=== PATIENT | male | born 1960 | race Caucasian/White ===

== ENCOUNTER → 2020-12-15 | Outpatient (CLI) | payer SELFPAY ==
[~2020-12-15] MED LIST: AMIO1TAB PO; COUM1TAB17 PO; OXYC1TAB23 PO; no home medications
[2020-12-15 11:12] LABS: BASO % 0.3 % (0.0-1.0); EOS # 0.1 10^3/uL (0.0-0.5); EOS % 0.7 % (0.0-3.0); HEMATOCRIT 47.1 % (42.0-52.0); HEMOGLOBIN 15.9 g/dl (13.5-17.5); LYMPH # 2.4 10^3/uL (1.5-5.0); LYMPH % 21.2 % (24.0-44.0); MEAN CORPUSCULAR HEMOGLOBIN 31.8 pg (27.0-33.0); MEAN CORPUSCULAR HGB CONC 33.8 g/dl (32.0-36.5); MEAN CORPUSCULAR VOLUME 94.2 fl (80.0-96.0); MONO # 0.7 10^3/uL (0.0-0.8); MONO % 6.5 % (2.0-8.0); NEUTROPHILS # 8.1 10^3/uL (1.5-8.5); PLATELET COUNT, AUTOMATED 256 10^3/uL (150-450); WHITE BLOOD COUNT 11.5 10^3/uL (4.0-10.0)
[2020-12-15 11:38] LABS: ALBUMIN 3.8 GM/DL (3.2-5.2); ALT/SGPT 26 U/L (12-78); BILIRUBIN,TOTAL 0.5 MG/DL (0.2-1.0); BLOOD UREA NITROGEN 11 MG/DL (7-18); CALCIUM LEVEL 9.4 MG/DL (8.8-10.2); CARBON DIOXIDE LEVEL 31 MEQ/L (21-32); CHLORIDE LEVEL 103 MEQ/L (98-107); CREATININE FOR GFR 0.91 MG/DL (0.70-1.30); GLOMERULAR FILTRATION RATE > 60.0 (>49); GLUCOSE, FASTING 139 MG/DL (70-100); LIPASE 66 U/L (73-393); POTASSIUM SERUM 4.4 MEQ/L (3.5-5.1); SODIUM LEVEL 138 MEQ/L (136-145); TOTAL PROTEIN 7.2 GM/DL (6.4-8.2)
== END ==
LOC: M LAB 09:35
PROVIDERS: ATTEND Physician Assistant
DX: R10.10 Upper abdominal pain, unspecified (principal)

== ENCOUNTER → 2020-12-17 | Outpatient (CLI) | payer SELFPAY ==
[~2020-12-17] MED LIST changes: +GASTROGRAFIN SOLUTION 30ML (Q9963) As Ordered ONE; +ISOVUE-370 76% 100ML VIAL As Ordered ONE
--- NOTE | 2020-12-17 11:15 | REP ---
INDICATION: UPPER ABD PAIN COMPARISON: CT chest 04/29/2012. TECHNIQUE: CT Scan of the abdomen and pelvis was performed with intravenous administration of 100 cc of Isovue 370, and oral contrast. Sagittal and coronal reconstruction images are performed. FINDINGS: Lung bases: Mild fibrotic changes. There is thickening of the distal esophagus. Along the right side of the gastroesophageal junction there is ill-defined soft tissue mass which measures 3.5 x 3.1 x 3.5 cm. There is no fat plane the mass from the adjacent gastroesophageal junction. Liver: There is calcified granuloma in the posterior right lobe of the liver. Gallbladder: Unremarkable. Spleen: Normal. Adrenals: Normal. Pancreas: Normal. Kidneys: Normal. Small and large bowel: Unremarkable. Free fluid: None. Abdominal aorta: No aneurysm or dissection. Adenopathy: Several subcentimeter lymph nodes are seen in the gastrohepatic ligament and phoebe hepatis. There are several subcentimeter lymph nodes in the right cardiophrenic angle. Scattered subcentimeter mesenteric and periaortic lymph nodes are present.. Appendix: Not inflamed. Osseous structures: Moderate compression of the L4 vertebral body is probably chronic.. Pelvis: No mass. 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 There is a contiguous soft tissue mass along the right side of the gastroesophageal junction measuring 3.5 x 3.1 x 3.5 cm. Multiple subcentimeter lymph nodes are seen in the adjacent gastrohepatic ligament and phoebe hepatis, as well as the right cardiophrenic angle. Moderate compression of the L4 vertebral body is likely chronic in nature. <Electronically signed by Boris Erickson > 12/17/20 1111
== END ==
LOC: M RAD 09:09
PROVIDERS: ATTEND Physician Assistant
DX: R10.10 Upper abdominal pain, unspecified (principal); K22.89 Other specified disease of esophagus
CPT/HCPCS: 74177; Q9963; Q9967

== ENCOUNTER → 2021-01-02 | Outpatient (CLI) | payer SELFPAY ==
[~2021-01-02] MED LIST changes: -GASTROGRAFIN SOLUTION 30ML (Q9963) As Ordered ONE; -ISOVUE-370 76% 100ML VIAL As Ordered ONE
== END ==
LOC: M LABSMTC 12:44
PROVIDERS: ATTEND Anesthesiology
DX: Z01.812 Encounter for preprocedural laboratory examination (principal); Z20.822 Contact with and (suspected) exposure to COVID-19

== ENCOUNTER 2021-01-07 11:08 | Day surgery (SDC) | payer SELFPAY ==
[~2021-01-07] VITALS: Ht 172.7 cm; Wt 77.5 kg
[~2021-01-07 11:08] MED LIST changes: +NS 1,000 ML IV ONE
--- OUTSIDE RECORDS SUMMARY | 2021-01-07 11:13 | CCD | Continuity of Care Document ---
Author Author Jose MCGRATH Organization Unknown Address [address] [place] [address] Phone [phone] Care Team Providers Care Employee Benefits Coordinator Name Role Phone FloZack Arreola MD - Otolaryngology AUTM [phone] No PCP AUTM Unavailable Problems Active Problems Provider Date Acute bronchitis Long Calero PKyleigh Onset: 1 Tobacco user Korina Grissom Onset: 1 Social History Type Date Description Comments Sex Unknown Tobacco Use Start: Unknown Patient is a current cigarette smoker, smokes every day 1 ppd ETOH Use Occasionally consumes alcohol Tobacco Use Start: Unknown Patient is a current smoker, smo kes every day Smoking Status Reviewed: 12/15/20 Patient is a current smoker, smokes every day Allergies and adverse reactions Description No Known Drug Allergies Medications Description No Active Medications Immunizations Description No Information Available Vital Signs Date Vital Result Comment 12/15/2020 8:30am BP Systolic 113 mmHg BP Diastolic 77 mmHg Heart Rate 73 /min Respiratory Rate 18 /min O2 % BldC Oximetry 97 % Body Temperature 98.2 F Weight 170.00 lb Height 67 inches 5'7" BMI (Body Mass Index) 26.6 kg/m2 Pain Level 0 10/02/2019 3:32pm BP Systolic 120 mmHg BP Diastolic 77 mmHg Heart Rate 90 /min O2 % BldC Oximetry 97 % Body Temperature 97.8 F Weight 186.00 lb Height 67 inches 5'7" BMI (Body Mass Index) 29.1 kg/m2 Pain Level 3 Results Description No Information Available Procedures Date Code Description Status 12/15/2020 56485 Office/Outpatient Established Lo w MDM 20-29 Min Completed Medical Devices Description No Information Available Encounters Type Date Location Provider Dx Diagnosis Office Visit 12/15/2020 8:15a Main Office Korina Goins R1 0.10 Upper abdominal pain, unspecified Assessments Date Code Description Provider 12/15/2020 R10.10 Upper abdominal pain, unspecifie d Korina Goins Plan of Treatment 12/15/2020 - Korina Goins* R10.10 Upper abdominal pain, unspecified* New Labs:* CBC With Differential, Ordered: 12/15/20 * Comprehensive Metabolic Profil, Ordered: 12/15/20 * Lipase, Ordered: 12/15/20 * Comments:* Will start by checking CBC, CMP and LipaseWill likely need CT scan as wellWill review lab results and then discuss getting a CT scan done on 12/17 or as soon as possibleFurther plan pending lab and imaging resultsWill call to update patient of results once reviewedHe should ensure he avoids aggravating foods, concentrate on eating foods he tolerates well and drinking plenty of fluids. Patient voiced understanding and agrees to treatment plan Functional Status Description No Information Available Mental Status Description No Information Available Referrals Description No Information Available
--- OUTSIDE RECORDS SUMMARY | 2021-01-07 11:13 | CCD | Continuity of Care Document ---
Author Author Jose MCGRATH Organization Unknown Address [address] [place] [address] Phone [phone] Care Team Providers Care School Photographs Detailer Name Role Phone FloZack Arreola MD - Otolaryngology AUTM No PCP AUTM Unavailable Problems Active Problems [...] Index) 29.1 kg/m2 Pain Level 3 Results Test Acquired Date Facility Test Result H/L Range Note CBC With Differential 12/15/2020 [facility] [address] [place] [address] [phone] White Blood Count 11.5 10 High 4.0-10.0 Red Blood Count 5.00 10 Normal 4.30-6.10 Hemoglobin 15.9 g/dL Normal 13.5-17.5 Hematocrit 47.1 % Normal 42.0-52.0 Mean Corpuscular Volume 94.2 fl Normal 80.0-96.0 Mean Corpuscular Hemoglobin 31.8 pg Normal 27.0-33.0 Mean Corpuscular HGB Conc 33.8 g/dL Normal 32.0-36.5 Red Cell Distribution Width 12.6 % Normal 11.5-14.5 Platelet Count, Automated 256 10 Normal 150-450 Neutrophils % 71.0 % High 36.0-66.0 Lymph % 21.2 % Low 24.0-44.0 [place] % 6.5 % Normal 2.0-8.0 Eos % 0.7 % Normal 0.0-3.0 Baso % 0.3 % Normal 0.0-1.0 Immature Granulocyte % 0.3 % Normal 0-3.0 Nucleated Red Blood Cell % 0.0 % Normal 0-0 Neutrophils # 8.1 10 Normal 1.5-8.5 Lymph # 2.4 10 Normal 1.5-5.0 [place] # 0.7 10 Normal 0.0-0.8 Eos # 0.1 10 Normal 0.0-0.5 Baso # 0.0 10 Normal 0.0-0.2 Comprehensive Metabolic Profil 12/15/[address] [address] [phone] Glucose, Fasting 139 mg/dL High 70-100 Blood Urea Nitrogen 11 mg/dL Normal 7-18 Creatinine For GFR 0.91 mg/dL Normal 0.70-1.30 Glomerular Filtration Rate > 60.0 Normal >49 1 Sodium Level 138 mEq/L Normal 136-145 Potassium Serum 4.4 mEq/L Normal 3.5-5.1 Chloride Level 103 mEq/L Normal 98-107 Carbon Dioxide Level 31 mEq/L Normal 21-32 Anion Gap 4 mEq/L Low 8-16 Calcium Level 9.4 mg/dL Normal 8.8-10.2 Ast/Sgot 11 U/L Normal 7-37 Alt/SGPT 26 U/L Normal 12-78 Alkaline Phosphatase 75 U/L Normal 45-117 Bilirubin,Total 0.5 mg/dL Normal 0.2-1.0 Total Protein 7.2 GM/DL Normal 6.4-8.2 Albumin 3.8 GM/DL Normal 3.2-5.2 Albumin/Globulin Ratio 1.1 Normal Laboratory test finding 12/15/2020 [facility] [id number] [place] [address] [phone] Lipase 66 U/L Low 73-393 1 Units are mL/min/1.73 m2 Chronic Kidney Disease Staging per NKF: Stage I & II GFR >=60 Normal to Mildly Decreased Stage III GFR 30-59 Moderately Decreased Stage IV GFR 15-29 Severely Decreased Stage V GFR <15 Very Little GFR Left ESRD GFR <15 on [employer] Procedures Date Code Description Status 12/15/2020 99533 Office/Outpatient Established Lo w MDM 20-29 Min Completed Medical Devices Description No Information Available Encounters Type Date Location Provider Dx Diagnosis Office Visit 12/15/2020 8:15a Main Office Emerson Mcgrath, P.A. R1 0.10 Upper abdominal pain, unspecified Assessments Date Code Description Provider 12/15/2020 R10.10 Upper abdominal pain, unspecifie d mEerson Mcgrath, PDemondADemond Plan of Treatment No Information Available Functional Status Description No Information Available Mental Status Description No Information Available Referrals Description No Information Available
--- OUTSIDE RECORDS SUMMARY | 2021-01-07 11:13 | CCD | Continuity of Care Document ---
Author Author Jose MCGRATH Organization Unknown Address [address] [place] [address] Phone [phone] Care Team Providers Care Pipe Coverer Helper Name Role Phone FloZack Arreola MD - [...] Available Procedures Date Code Description Status 12/15/2020 87158 Office/Outpatient Established Lo w MDM 20-29 Min Completed Medical Devices Description No Information Available Encounters Type Date Location Provider Dx Diagnosis Office Visit 12/15/2020 8:15a Main Office Korina Goins R1 0.10 Upper abdominal pain, unspecified Assessments Date Code Description Provider 12/15/2020 R10.10 Upper abdominal pain, unspecifie d Korina Goins Plan of Treatment No Information Available Functional Status Description No Information Available Mental Status Description No Information Available Referrals Description No Information Available
--- OUTSIDE RECORDS SUMMARY | 2021-01-07 11:13 | CCD ---
Author Author [facility] Organization [facility] Address Unknown Phone Unavailable Care Team Providers Care Sand Car Worker Name Role Phone ALCIDESBRITANY PA Unavailable Unavailable ALCIDES, BRITANY PA Unavailable Unavailable ALCIDES, BRITANY PA Unavailable Unavailable ALCIDES, BRITANY PA Unavailable Unavailable ALCIDES, BRITANY PA Unavailable Unavailable ALCIDES, BRITANY PA Unavailable Unavailable ALCIDES, BRITANY PA Unavailable Unavailable ALCIDES, BRITANY PA Unavailable Unavailable ALCIDES, BRITANY PA Unavailable Unavailable ALCIDES, BRITANY PA Unavailable Unavailable ALCIDES, BRITANY PA Unavailable Unavailable ALCIDES, BRITANY PA Unavailable Unavailable ALCIDES, BRITANY PA Unavailable Unavailable ALCIDES, BRITANY PA Unavailable Unavailable ALCIDES, BRITANY PA Unavailable Unavailable ALCIDES, BRITANY PA Unavailable Unavailable ALCIDES, BRITANY PA Unavailable Unavailable ALCIDES, BRITANY PA Unavailable Unavailable ALCIDES, BRITANY PA Unavailable Unavailable ALCIDES, BRITANY PA Unavailable Unavailable ALCIDES, BRITANY PA Unavailable Unavailable ALCIDES, BRITANY PA Unavailable Unavailable ALCIDES, BRITANY PA Unavailable Unavailable ALCIDES, BRITANY PA Unavailable Unavailable ALCIDES, BRITANY PA Unavailable Unavailable ALCIDES, BRITANY PA Unavailable Unavailable ALCIDES, BRITANY PA Unavailable Unavailable ALCIDES, BRITANY PA Unavailable Unavailable ACLIDES, BRITANY PA Unavailable Unavailable ALCIDES, BRITANY PA Unavailable Unavailable ALCIDES, BRITANY PA Unavailable Unavailable ALCIDES, BRITANY PA Unavailable Unavailable ALCIDES, BRITANY PA Unavailable Unavailable ALCIDES, BRITANY PA Unavailable Unavailable ALCDIES, BRITANY PA Unavailable Unavailable ALCIDES, BRITANY PA Unavailable Unavailable Crye Pepe VINSON MD Unavailable Crye Pepe VINSON MD Unavailable Crye Pepe VINSON MD Unavailable Crye Pepe VINSON MD Unavailable Crye Pepe VINSON MD Unavailable Crye Pepe VINSON MD Unavailable Crye Pepe VINSON MD Unavailable Crye Pepe VINSON MD Unavailable Crye Pepe VINSON MD Unavailable Crye Pepe VINSON MD Unavailable Crye Pepe VINSON MD Unavailable Crye Pepe VINSON MD Unavailable Crye Pepe VINSON MD Unavailable Crye Pepe VINSON MD Unavailable Crye Pepe VINSON MD Unavailable Crye Pepe VINSON MD Unavailable Crye Pepe VINSON MD Unavailable Crye Pepe VINSON MD Unavailable Crye Pepe VINSON MD Unavailable Crye Pepe VINSON MD Unavailable Crye Pepe VINSON MD Unavailable Crye Pepe VINSON MD Unavailable Crye Pepe VINSON MD Unavailable Crye Pepe VINSON MD Unavailable Crye Pepe VINSON MD Unavailable Crye Pepe VINSON MD Unavailable Crye Pepe VINSON MD Unavailable Crye Pepe VINSON MD Unavailable Crye Pepe VINSON MD Unavailable Crye Pepe VINSON MD Unavailable Crye Pepe VINSON MD Unavailable Crye Pepe VINSON MD Unavailable Crye Pepe VINSON MD Unavailable Crye Pepe VINSON MD Unavailable MYRAEPepe [id number] Unavailable Unavailable Re-disclosure Warning The records that you are about to access may contain information from federally-assisted alcohol or drug abuse programs. If such information is present, then the following federally mandated warning applies: This information has been disclosed to you from records protected by federal confidentiality rules (42 CFR part 2). The federal rules prohibit you from making any further disclosure of this information unless further disclosure is expressly permitted by the written consent of the person to whom it pertains or as otherwise permitted by 42 CFR part 2. A general authorization for the release of medical or other information is NOT sufficient for this purpose. The Federal rules restrict any use of the information to criminally investigate or prosecute any alcohol or drug abuse patient.The records that you are about to access may contain highly sensitive health information, the redisclosure of which is protected by Article 27-F of the [facility] Public Health law. If you continue you may have access to information: Regarding HIV / AIDS; Provided by facilities licensed or operated by the [facility] Office of Mental Health; or Provided by the [facility] Office for People With Developmental Disabilities. If such information is present, then the following [facility] mandated warning applies: This information has been disclosed to you from confidential records which are protected by state law. State law prohibits you from making any further disclosure of this information without the specific written consent of the person to whom it pertains, or as otherwise permitted by law. Any unauthorized further disclosure in violation of state law may result in a fine or residential sentence or both. A general authorization for the release of medical or other information is NOT sufficient authorization for further disc losure. Family History Family Member Name Family Member Gender Family Member Status Date o f Status Description Data Source(s) Unknown Unknown Problem MEDENT ([facility], [facility]) Unknown Female Problem [facility] ([facility]) Encounters Encounter Providers Location Date Indications Data Source(s ) Outpatient Attender: YULY GOODRICH [id number]: Yuly Goodrich MD 01/14/2021 12:00:00 AM [facility] Outpatient Attender: BRITANY Wade Ruiz Candie ry 12/15/2020 08:15:00 AM EDT MED[facility] ([facility], [facility]) Medications No Information Insurance Providers Payer name Policy type / Coverage type Policy ID Covered alliance party ID Covered alliance party's relationship to saravia Policy Saravia Plan Information BS Exchange (Epo,Hmo,Ppo) Commercial [id number] Self SELF PAY ONLY [id number] SP YNE [id number] [place] PPO 302/[id number] SP [id number] EXCELLUS BCBS B [id number] S YNE [id number] SELF PAY UNAVAILABLE SP UNAVAILA BLE P UNAVAILABLE [id number] UNAVAILA BLE SELF PAY P UNAVAILABLE UNAVAILA BLE SELF PAY ONLY [id number] SP [id number] Problems, Conditions, and Diagnoses No Information Surgeries/Procedures Procedure Description Date Indications Data Source(s) OFFICE OUTPATIENT VISIT 15 MINUTES 12/15/2020 12:00:00 AM EDT MED[facility] ([facility], [facility]) Results ID Date Data Source [id number] 12/15/2020 10:54:00 AM EDT MED[facility] ([facility], [facility]) Name Value Range Interpretation Code Description Data Lisa rce(s) Supporting Document(s) Lipoprotein lipase [Enzymatic activity/volume] in Serum or Plasm a 66 U/L 73-393 MED[facility] ([facility], [facility]) ID Date Data Source [id number] 12/15/2020 10:54:00 AM EDT MED[facility] ([facility], [facility]) Name Value Range Interpretation Code Description Data Lisa rce(s) Supporting Document(s) Blood Urea Nitrogen 11 mg/dL 7-18 MEDENT ([facility], [facility]) Glucose, Fasting 139 mg/dL 70-100 [facility] ([facility], [facility]) Creatinine For GFR 0.91 mg/dL 0.70-1.30 MED[facility] ([facility], [facility]) Glomerular Filtration Rate Laboratory test result MEDENT ([facility], [facility]) <content>Units are mL/min/1.73 m2</content>
<content></content>
<content>Chronic Kidney Disease Staging per NKF:</content>
<content></content>
<content>Stage I & II GFR >=60 Normal to Mildly Decreased</content>
<content>Stage III GFR 30-59 Moderately Decreased</content>
<content>Stage IV GFR 15-29 Severely Decreased</content>
<content>Stage V GFR <15 Very Little GFR Left</content>
<content>ESRD GFR <15 on BURRER OPERATOR</content>
<content></content> Sodium Level 138 meq/L 136-145 MEDENT ([facility], [facility]) Potassium Serum 4.4 meq/L 3.5-5.1 MED[facility] ([facility], [facility]) Chloride Level 103 meq/L 98-107 MEDENT ([facility], [facility]) Carbon Dioxide Level 31 meq/L 21-32 [facility] ([facility]) Anion Gap 4 meq/L 8-16 MED[facility] ([facility], [facility]) Calcium Level 9.4 mg/dL 8.8-10.2 MED[facility] ([facility], [facility]) Ast/Sgot 11 U/L 7-37 MED[facility] ([facility], [facility]) Alkaline Phosphatase 75 U/L 45-117 MED[facility] ([facility], [facility]) Alt/SGPT 26 U/L 12-78 MED[facility] ([facility], [facility]) Bilirubin,Total 0.5 mg/dL 0.2-1.0 MED[facility] ([facility], [facility]) Albumin/Globulin Ratio 1.1 MED[facility] ([facility], [facility]) Total Protein 7.2 GM/DL 6.4-8.2 MED[facility] ([facility], [facility]) Albumin 3.8 GM/DL 3.2-5.2 MED[facility] ([facility], [facility]) ID Date Data Source [id number] 12/15/2020 10:54:00 AM EDT MEDENT ([facility], [facility]) Name Value Range Interpretation Code Description Data Lisa rce(s) Supporting Document(s) White Blood Count 11.5 10 4.0-10.0 MED[facility] ([facility], [facility]) Red Blood Count 5.00 10 4.30-6.10 MED[facility] ([facility], [facility]) Hematocrit 47.1 % 42.0-52.0 MED[facility] ([facility], [facility]) Hemoglobin 15.9 g/dL 13.5-17.5 [facility] Mean Corpuscular Volume 94.2 fl 80.0-96.0 M EDENT ([facility], [facility]) Mean Corpuscular HGB Conc 33.8 g/dL 32.0-36.5 MEDENT ([facility], [facility]) Mean Corpuscular Hemoglobin 31.8 pg 27.0-33.0 MED[facility] ([facility], [facility]) Platelet Count, Automated 256 10 150-450 MED[facility] ([facility], [facility]) Red Cell Distribution Width 12.6 % 11.5-14.5 MED[facility] ([facility], [facility]) Lymph % 21.2 % 24.0-44.0 MEDENT ([facility], [facility]) Neutrophils % 71.0 % 36.0-66.0 MEDENT ([facility], [facility]) [place] % 6.5 % 2.0-8.0 MEDENT ([facility], [facility]) Eos % 0.7 % 0.0-3.0 MEDENT ([facility], [facility]) Baso % 0.3 % 0.0-1.0 MED[facility] ([facility]) Immature Granulocyte % 0.3 % 0-3.0 MEDENT ([facility], [facility]) Nucleated Red Blood Cell % 0.0 % 0-0 MED ENT ([facility], [facility]) Neutrophils # 8.1 10 1.5-8.5 MED[facility] ([facility], [facility]) Lymph # 2.4 10 1.5-5.0 MED[facility] ([facility], [facility]) Eos # 0.1 10 0.0-0.5 MED[facility] ([facility], [facility]) [place] # 0.7 10 0.0-0.8 MED[facility] ([facility], [facility]) Baso # 0.0 10 0.0-0.2 MED[facility] ([facility], [facility]) ID Date Data Source [id number] 03/03/2020 12:00:00 AM EST [facility] Name Value Range Interpretation Code Description Data Lisa rce(s) Supporting Document(s) SARS-CoV2 Rapid Antigen Positive [facility] This lab was ordered by [facility] and reported by [facility]. Procedure Social History No Information Vital Signs ID Date Data Source UNK Name Value Range Interpretation Code Description Data Source(s) Systolic blood pressure 126 mm[Hg] 126 mm[Hg] [facility] ([facility]) Diastolic blood pressure 78 mm[Hg] 78 mm[Hg] [facility] ([facility]) Body height 67.75 [in_i] 67.75 [in_i] [facility] ([facility]) 5'7.75" Body weight 169.00 [lb_av] 169.00 [lb_av] [facility] ([facility]) Body mass index (BMI) [Ratio] 25.9 kg/m2 25.9 k g/m2 [facility] ([facility]) [place] body weight 148 [lb_av] 148 [lb_av] [facility] Body weight 76.658 kg 76.658 kg [facility] ([facility]) Body surface area Derived from formula 1.90 m2 1.90 m2 [facility] ([facility]) Systolic blood pressure 113 mm[Hg] 113 mm[Hg] [facility] Diastolic blood pressure 77 mm[Hg] 77 mm[Hg] [facility]) Heart rate 73 /min 73 /min [facility] ([facility], [facility]) Respiratory rate 18 /min 18 /min [facility] ( [facility], [facility]) Oxygen saturation in Arterial blood by Pulse oximetry 97 % 97 % [facility] ([facility], [facility]) Body temperature 98.2 [degF] 98.2 [degF] [facility] ([facility], [facility]) Body weight 170.00 [lb_av] 170.00 [lb_av] MED[facility] ([facility], [facility]) Body height 67 [in_i] 67 [in_i] [facility] ([facility]) 5'7" Body mass index (BMI) [Ratio] 26.6 kg/m2 26.6 k g/m2 [facility] ([facility])
--- OUTSIDE RECORDS SUMMARY | 2021-01-07 11:13 | CCD | Continuity of Care Document ---
Author Author Jose CERDA M.D. Organization Unknown Address [address] [place] [address], [address] [place] [address] Phone [phone] Care Team Providers Care Veneer Sawyer Name Role Phone AUTM Unavailable Melida Wright M.D. AUTM [phone] No PCP AUTM Unavailable Problems Active Problems Provider Date Allergic rhinitis Brian Sarmiento MD Onset: 08/29/2014 Deviated nasal septum Brian Sarmiento MD Onset: 08/29/2014 Social History Type Date Description Comments Sex Unknown Smokeless Tobacco Never Used Smokeless Tobacco ETOH Use 0-1/d Tobacco Use Start: Unknown 1.5ppd Recreational Drug Use Denies Drug Use Allergies and adverse reactions Description No Known Drug Allergies Medications Description No Active Medications Immunizations Description No Information Available Vital Signs Date Vital Result Comment 12/26/2020 9:47am BP Systolic 126 mmHg BP Diastolic 78 mmHg Height 67.75 inches 5'7.75" Weight 169.00 lb BMI (Body Mass Index) 25.9 kg/m2 [place] Body Weight 148 lb Weight 76.658 kg BSA (Body Surface Area) 1.90 m2 08/29/2014 10:50am Height 67 inches 5'7" Weight 220.00 lb BMI (Body Mass Index) 34.5 kg/m2 [place] Body Weight 148 lb Weight 99.792 kg BSA (Body Surface Area) 2.11 m2 Results Description No Information Available Procedures Description No Information Available Medical Devices Description No Information Available Encounters Description No Information Available Assessments Description No Information Available Plan of Treatment Future Appointment(s):* 01/07/2021 8:15 am - Dhruv Cerda M.D. at [facility] Functional Status Description No Information Available Mental Status Description No Information Available Referrals Refer to Reason for Referral Status Appt Date Dhruv Cerda M.D. ESOPHAGEAL MASS Created [facility] [address], [address] [place] [address] [phone]
[2021-01-07] MEDS ORDERED: fentaNYL 100 MCG/2 ML INJECTION (J3010) As Ordered ONE (12:42)
[2021-01-07] MEDS ORDERED: propofoL 500 MG/50 ML VIAL As Ordered ONE (12:42)
[2021-01-07] MEDS ORDERED: LIDOCAINE 2% 100MG/5ML SDV (FOR ANES.) As Ordered ONE (13:00)
--- NOTE | 2021-01-07 14:09 | ROOR ---
Patient Name: Jose Olivera Procedure Date: 01/07/2021 1:31 PM Date of : 1960 Age: 60 Room: [facility] Gender: Male Note Status: Finalized Procedure: Upper GI endoscopy Indications: Dysphagia, Abnormal CT of the GI tract Providers: Dhruv Arellano MD Referring MD: Melida Wright Md Requesting Provider: Medicines: Monitored Anesthesia Care Complications: No immediate complications. Procedure: Pre-Anesthesia Assessment: - Prior to the procedure, a History and Physical was performed, and patient medications and allergies were reviewed. The patient is competent. The risks and benefits of the procedure and the sedation options and risks were discussed with the patient. All questions were answered and informed consent was obtained. Patient identification and proposed procedure were verified by the physician, the nurse and the anesthesiologist in the procedure room. Mental Status Examination: alert and oriented. Airway Examination: normal oropharyngeal airway and neck mobility. Respiratory Examination: clear to auscultation. CV Examination: normal. Prophylactic Antibiotics: The patient does not require prophylactic antibiotics. Prior Anticoagulants: The patient has taken no previous anticoagulant or antiplatelet agents. ASA Grade Assessment: II - A patient with mild systemic disease. After reviewing the risks and benefits, the patient was deemed in satisfactory condition to undergo the procedure. The anesthesia plan was to use monitored anesthesia care (MAC). Immediately prior to administration of medications, the patient was re-assessed for adequacy to receive sedatives. The heart rate, respiratory rate, oxygen saturations, blood pressure, adequacy of pulmonary ventilation, and response to care were monitored throughout the procedure. The physical status of the patient was re-assessed after the procedure. The Endoscope was introduced through the mouth, and advanced to the second part of duodenum. The upper GI endoscopy was accomplished without difficulty. The patient tolerated the procedure well. Findings: Circumferential salmon-colored mucosa was present from 20 to 40 cm. A large, ulcerating mass with no bleeding and stigmata of recent bleeding was found in the middle third of the esophagus and in the lower third of the esophagus, 25 to 40 cm from the incisors. The mass was completely obstructing and circumferential. Biopsies were taken with a cold forceps for histology. Verification of patient identification for the specimen was done by the physician and nurse using the patient's name, date and medical record number. Estimated blood loss was minimal. One malignant-appearing, intrinsic severe (stenosis; an endoscope cannot pass) stenosis was found 25 to 40 cm from the incisors. This stenosis measured 15 cm (in length). The stenosis was traversed after downsizing scope. No gross lesions were noted in the entire examined stomach. The duodenal bulb and second portion of the duodenum were normal. Impression: - [place]-colored mucosa consistent with long-segment Gore's esophagus. - Completely obstructing, likely malignant esophageal tumor was found in the middle third of the esophagus and in the lower third of the esophagus. Biopsied. - Malignant-appearing esophageal stenosis. - No gross lesions in the stomach. - Normal duodenal bulb and second portion of the duodenum. Recommendation: - Patient has a contact number available for emergencies. The signs and symptoms of potential delayed complications were discussed with the patient. Return to normal activities tomorrow. Written discharge instructions were provided to the patient. - Clear liquid diet. - Continue present medications. - Use Protonix (pantoprazole) 40 mg PO twice daily - to be taken in morning (1/2 hour before breakfast) and at bedtime ( atleast 3 hours after last meal) for 3 months. - Use sucralfate suspension 1 gram PO QID for 4 weeks. - Await pathology results. - Refer to an oncologist as previously scheduled. - Telephone GI clinic for pathology results in 1 week. - Return to primary care physician. Procedure Code(s): --- Professional --- 23102, Esophagogastroduodenoscopy, flexible, transoral; with biopsy, single or multiple Diagnosis Code(s): --- Professional --- K22.8, Other specified diseases of esophagus D49.0, Neoplasm of unspecified behavior of digestive system K22.2, Esophageal obstruction R13.10, Dysphagia, unspecified R93.3, Abnormal findings on diagnostic imaging of other parts of digestive tract CPT copyright 2019 [employer]. All rights reserved. 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 Dhruv Arellano MD Dhruv Arellano MD 01/07/2021 2:08:35 PM Electronically signed by Dhruv Arellano MD Number of Addenda: 0 Note Initiated On: 01/07/2021 1:31 PM Estimated Blood Loss: Estimated blood loss was minimal.
[2021-01-07 14:23] VITALS: BP 109/63
== END 2021-01-07 15:00 | disposition home or self-care (01) ==
LOC: M OPP 11:08
PROVIDERS: ATTEND Internal Medicine Gastroenterology
DX: K22.89 Other specified disease of esophagus (principal); C15.9 Malignant neoplasm of esophagus, unspecified; K22.2 Esophageal obstruction; R13.10 Dysphagia, unspecified; R93.3 Abnormal findings on diagnostic imaging of other parts of digestive tract
CPT/HCPCS: 43239; 88305; J3010

== ENCOUNTER → 2021-01-29 | Outpatient (CLI) | payer OTHER, SELFPAY ==
[~2021-01-29] MED LIST changes: +ACET325C5 PO; -NS 1,000 ML IV ONE; +PANT40TA29; +SUCR1ORA2
--- NOTE | 2021-01-29 15:20 | RADONC.CN ---
Radiation Oncology Hx/Consult Radiation Oncology Consult Date of Service: Jan 29, 2021 Pt Identifier Jose Olivera is a 60 year old male former smoker with a recently diagnosed distal esophageal adenocarcinoma. He has seen Dr. Goodrich for port placement and jejunostomy and is seen today for consideration of neoadjuvant chemoradiation. Diagnosis/Treatment History Oncologic History Presented in Fall 2020 with dysphagia and weight loss 12/17/[address] showing distal esophageal thickening 01/07/21 EGD with biopsy showing adenocarcinoma of the GEJ 01/23/21 Mediport, jejunostomy, laparoscopy (Dr. 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 He has some substernal discomfort when he eats. His weight is down 20 lbs in recent months. He is able to eat soft solids and drink. He has emesis when food gets trapped. He has no complaints related to recent feeding tube placement. Is unclear when his PET-CT is. Past Medical History: GERD Pneumothorax x 2 Past Surgical History: Pin in right elbow Congenitally absent right ear s/p reconstruction Family History: Father lymphoma Social History: 80 pack year former smoker Past heavy alcohol consumption Allergies / Meds Allergies: Coded Allergies: No Known Allergies (Verified , 01/01/21) Home Meds Reported Medications Acetaminophen (Tylenol) 325 Mg Capsule, 325 MG PO, CAP 01/29/21 Pantoprazole Sodium (Pantoprazole Sodium) 40 Mg Tablet. 01/29/21 Sucralfate (Sucralfate) 1 Gm/10 Ml Oral.susp 01/29/21 Review of Systems Constitutional: Reports: Fatigue, Weight Loss; Denies: Fever, Night Sweats Eyes: Denies: Pain HEENT: Denies: Head Aches Skin: Denies: Rash Pulmonary: Denies: Dyspnea, Cough Cardiovascular: Denies: Chest Pain, Edema Gastrointestinal: Reports: Vomiting, Abdominal Pain; Denies: Nausea, Hematochezia Hematologic: Denies: Enlarged Lymph Nodes Musculoskeletal: Reports: Midthoracic pain; Denies: Neck pain, Back pain Neurological: Denies: Weakness, Numbness Psych: Reports: Mood Normal Vital Signs Ht 65" Wt 157 lbs BMI 26 T 98.3 P 79 RR 18 BP 107/75 O2 95% Pain 0 Fatigue 2 General Exam: Alert, Cooperative, No Acute Distress Eye Exam: PERRLA, EOMI ENT EXAM: Atraumatic Neck Exam: Supple; Negative: Lymphadenopathy Chest Exam: Clear to auscultation, Normal air movement Heart Exam: Rate Normal, Irregular Rhythm Abdomen Exam: Normal bowel sounds, Soft, Other (J tube site CDI) Extremity Exam: Negative: Edema Skin Exam: Nl turgor and temperature Neuro Exam: Normal Gait, Normal Speech, Cranial Nerves 3-12 NL Psych Exam: Mental status NL Diagnostic and Laboratory Diagnostic Review Radiologic images, relevant labs and pathology reports were personally reviewed and discussed with Mr. Olivera. Assessment and Plan Impression Mr. Olivera is a 60 year old male former smoker with a recently diagnosed distal esophageal adenocarcinoma. He has seen Dr. Goodrich for port placement and jejunostomy and is seen today for consideration of neoadjuvant chemoradiation. Stage GEJ adenocarcinoma [id number] stage X (pending imaging) Performance Status ECOG 1 Plan We had an extensive discussion with Mr. Olivera regarding the diagnosis at hand and available therapeutic options. He has tube feeding plan in place through [facility]. Discussed he should continue to eat as much by mouth as possible and strive for stable weight. He has a pending PET-CT on 02/04/21 this will complete his staging workup. If he is localized as is thought, then he would be eligible for neoadjuvant CROSS paradigm chemoradiation 45 Gy in 25 fractions with DCA planning and daily CBCT, concurrent weekly carbo/taxol, then esophagectomy afterward, with adjuvant nivolumab if there is residual disease on the resection specimen. We discussed the logistics of receiving radiation therapy in detail including the need for a 1-time planning session. This can occur in the coming week. Given the tumor is distal, I will use a 4D/ITV simulation to account for respiratory excursion of the tumor. We reviewed the side effects of treatment fatigue, skin reaction, esophagitis and surgical complications. After discussing the risks, benefits and alternatives to radiation therapy, Mr. Olivera was amenable to pursuing radiotherapy. All questions were answered to the patient's satisfaction. We instructed the patient that if there were any questions,concerns or changes in clinical status in the interim to contact us. Recommendations Pending PET-CT, neoadjuvant chemoradiation 45 Gy in 25 fractions with carbo/taxol Simulation next week Billing Statement Total time of [49] minutes was spent preparing for the visit [3], obtaining HPI [10], examining the patient [3], reviewing diagnostic tests [7], discussing management options [15], coordinating care [4], and writing this note [7]. ANTONIO MARMOLEJO MD Jan 29, 2021 15:20
== END ==
LOC: M ONCR 10:03
PROVIDERS: ATTEND General Practice
DX: C15.9 Malignant neoplasm of esophagus, unspecified (principal); Z87.891 Personal history of nicotine dependence; Z79.899 Other long term (current) drug therapy; Z97.8 Presence of other specified devices

== ENCOUNTER 2021-02-21 08:44 | Outpatient (RCR) | payer OTHER | END 2021-02-22 | LOC: M ONCR 08:44 | PROVIDERS: ATTEND General Practice | DX: C15.5 Malignant neoplasm of lower third of esophagus (principal) ==

== ENCOUNTER → 2021-03-20 | Outpatient (CLI) | payer OTHER ==
[~2021-03-20] MED LIST changes: +ONDA-84 PO; -PANT40TA29; +PANT40TA29 PO; +PROC10TA5 PO; -SUCR1ORA2; +SUCR1ORA2 PO
== END ==
LOC: M RAD 06:53
PROVIDERS: ATTEND Internal Medicine Medical Oncology
DX: C15.9 Malignant neoplasm of esophagus, unspecified (principal); K76.89 Other specified diseases of liver

== ENCOUNTER → 2021-03-25 | Outpatient (RCR) | payer OTHER ==
[~2021-03-25] MED LIST changes: +LOPE1SUS PEG; +SUCR1ORA2 PEG; +TGTSUS2 PEG; +TGTSUS2 PO
== END ==
LOC: M ONCR 02-26 15:04
PROVIDERS: ATTEND General Practice
DX: C15.5 Malignant neoplasm of lower third of esophagus (principal)

== ENCOUNTER 2021-03-29 13:32 | Outpatient (RCR) | payer OTHER | END 2021-04-22 | LOC: M ONCR 13:32 | PROVIDERS: ATTEND General Practice | DX: C15.5 Malignant neoplasm of lower third of esophagus (principal) ==

== ENCOUNTER → 2021-04-03 | Outpatient (CLI) | payer OTHER ==
[~2021-04-03] MED LIST changes: +LIDOCAINE 1% MDV 20ML VIAL As Ordered ONE
[2021-04-03 10:00] VITALS: BP 109/70
== END ==
LOC: M IRPRO 08:49
PROVIDERS: ATTEND Internal Medicine Medical Oncology
DX: K76.89 Other specified diseases of liver (principal); C15.9 Malignant neoplasm of esophagus, unspecified; Z53.8 Procedure and treatment not carried out for other reasons

== ENCOUNTER → 2021-04-24 | Outpatient (CLI) | payer OTHER ==
[2021-04-24 12:00] VITALS: BP 91/57
== END ==
LOC: M IRPRO 11:05
PROVIDERS: ATTEND Internal Medicine Medical Oncology
DX: C15.9 Malignant neoplasm of esophagus, unspecified (principal); Z53.8 Procedure and treatment not carried out for other reasons

== ENCOUNTER → 2021-05-21 | Outpatient (POV) | payer OTHER ==
[~2021-05-21] VITALS: Ht 170.2 cm; Wt 66.3 kg
[~2021-05-21] MED LIST changes: -LIDOCAINE 1% MDV 20ML VIAL As Ordered ONE; +NICO1DIS12; +ONDA-84; +ONDA8TAB8 PO; +PANT40TA29; +PROC10TA5; +SUCR1ORA2
[2021-05-21 12:50] VITALS: BP 121/81
== END ==
LOC: M IRPOV 11:56
PROVIDERS: ATTEND Radiology Diagnostic Radiology
DX: K94.29 Other complications of gastrostomy (principal)

== ENCOUNTER 2021-05-23 01:32 | Emergency (ER) | payer OTHER ==
[~2021-05-23] VITALS: Ht 170.2 cm; Wt 66.8 kg
[2021-05-23 01:32] VITALS: BP 111/58
== END 2021-05-23 03:17 | disposition home or self-care (01) ==
LOC: M ED 01:32
DX: T85.528A Displacement of other gastrointestinal prosthetic devices, implants and grafts, initial encounter (principal); Y92.89 Other specified places as the place of occurrence of the external cause; Y93.9 Activity, unspecified; K22.89 Other specified disease of esophagus; R13.10 Dysphagia, unspecified; Z92.21 Personal history of antineoplastic chemotherapy; Z92.3 Personal history of irradiation

== ENCOUNTER → 2021-06-26 | Outpatient (CLI) | payer OTHER ==
[~2021-06-26] MED LIST changes: +ACET-716 PO; +ACET300T48 PO; +ACET32TAB PO; +BACL10TA2 PO; +FAMO20TA PO; +SENN8.8S11 PO
== END ==
LOC: M ONCR 11:09
PROVIDERS: ATTEND General Practice
DX: Z08 Encounter for follow-up examination after completed treatment for malignant neoplasm (principal); C15.5 Malignant neoplasm of lower third of esophagus; F17.210 Nicotine dependence, cigarettes, uncomplicated; K59.00 Constipation, unspecified; R11.2 Nausea with vomiting, unspecified; Z79.899 Other long term (current) drug therapy; Z92.21 Personal history of antineoplastic chemotherapy; Z92.3 Personal history of irradiation

== ENCOUNTER 2021-06-28 12:34 | Emergency (ER) | payer OTHER ==
[~2021-06-28] VITALS: Ht 170.2 cm; Wt 67.3 kg
[~2021-06-28 12:34] MED LIST changes: -ACET300T48 PO; -BACL10TA2 PO
[2021-06-28] MEDS ORDERED: ACET300T48 PO (13:50)
[2021-06-28 14:22] LABS: ALBUMIN 3.4 GM/DL (3.2-5.2); ALT/SGPT 34 U/L (12-78); BILIRUBIN,DIRECT 0.1 MG/DL (0.0-0.2); BILIRUBIN,TOTAL 0.2 MG/DL (0.2-1.0); BLOOD UREA NITROGEN 12 MG/DL (7-18); CALCIUM LEVEL 8.9 MG/DL (8.8-10.2); CARBON DIOXIDE LEVEL 32 MEQ/L (21-32); CHLORIDE LEVEL 102 MEQ/L (98-107); CREATININE FOR GFR 0.67 MG/DL (0.70-1.30); GLOMERULAR FILTRATION RATE > 60.0 (>49); GLUCOSE, FASTING 142 MG/DL (70-100); HEMATOCRIT 35.4 % (42.0-52.0); LIPASE 47 U/L (73-393); MEAN CORPUSCULAR HEMOGLOBIN 34.9 pg (27.0-33.0); MEAN CORPUSCULAR HGB CONC 33.9 g/dl (32.0-36.5); MEAN CORPUSCULAR VOLUME 102.9 fl (80.0-96.0); PLATELET COUNT, AUTOMATED 240 10^3/uL (150-450); RED BLOOD COUNT 3.44 10^6/uL (4.30-6.10); SODIUM LEVEL 138 MEQ/L (136-145); TOTAL PROTEIN 6.4 GM/DL (6.4-8.2)
[2021-06-28 14:23] LABS: WHITE BLOOD COUNT 60.8 10^3/uL (4.0-10.0)
[2021-06-28 15:01] LABS: LYMPHOCYTES 1 % (16-44); METAMYELOCYTES 1 % (0-0); MONOCYTES 4 % (0-5); NEUTROPHILS 93 % (28-66)
[2021-06-28 15:03] LABS: ANISOCYTOSIS 1+; PLATELET ESTIMATE NORMAL (NORMAL)
[2021-06-28] MEDS ORDERED: ISOVUE-370 76% 100ML VIAL As Ordered ONE (15:06)
[2021-06-28] MEDS ORDERED: BACL10TA2 PO ×2 (16:08→16:12)
[2021-06-28 16:23] VITALS: BP 137/76
[2021-07-01] MEDS ORDERED: BACL10TA2 PO (13:01)
== END 2021-06-28 16:30 | disposition home or self-care (01) ==
LOC: M ED 12:34
DX: D72.829 Elevated white blood cell count, unspecified (principal); C15.9 Malignant neoplasm of esophagus, unspecified; R11.10 Vomiting, unspecified; R14.2 Eructation; R91.8 Other nonspecific abnormal finding of lung field; R93.2 Abnormal findings on diagnostic imaging of liver and biliary tract; Z93.1 Gastrostomy status; F17.200 Nicotine dependence, unspecified, uncomplicated; F12.10 Cannabis abuse, uncomplicated; F10.10 Alcohol abuse, uncomplicated; Z79.899 Other long term (current) drug therapy
CPT/HCPCS: 36415; 71260; 74177; 80048; 80076; 83690; 85025; 99284; Q9967

== ENCOUNTER → 2021-07-16 | Outpatient (CLI) | payer OTHER ==
[~2021-07-16] MED LIST changes: +ACET300T48 PO; +BACL10TA2 PO; +EQL50TAB2 PO; +NOXI1TAB PO; +PRIL20TA2 PO
== END ==
LOC: M ONCR 12:55
PROVIDERS: ATTEND General Practice
DX: C15.5 Malignant neoplasm of lower third of esophagus (principal); Z92.21 Personal history of antineoplastic chemotherapy

== ENCOUNTER → 2021-08-13 | Outpatient (CLI) | payer OTHER | LOC: M PLARAD 14:28 | PROVIDERS: ATTEND Internal Medicine Hematology & Oncology | DX: C15.8 Malignant neoplasm of overlapping sites of esophagus (principal); R93.2 Abnormal findings on diagnostic imaging of liver and biliary tract | CPT/HCPCS: 78815; A9552 ==

== ENCOUNTER → 2021-09-12 | Outpatient (CLI) | payer OTHER ==
[~2021-09-12] VITALS: Ht 177.8 cm; Wt 68.6 kg
[~2021-09-12] MED LIST changes: +ALBU8.5H INH; +BACL1TAB8 PO; +COLA100C5 PO; +DEXA2TA PO; +DOCU100C16 PO; +ELIQ5TAB PO; +FERR1TAB8 PO; +FERR325T19 PO; +LEVO1TAB40 PO; +MIRA1POW3 PO; +MIRA3350 PO; +MORP15TA2 PO; +MORP30TASA PO; +MSIR30TA PO; +ONDA4TAB6 PO; +PANT-23 PO; +PATIENT COMMENT; +PROAAER10 INH; +SENN18TA PO; +SENN8.6T58 PO; +SUCR1ORA PO; +TORS20TA2 PO
[2021-09-12 13:19] VITALS: BP 104/74
== END ==
LOC: M PAL 12:59
PROVIDERS: ATTEND Nurse Practitioner Adult Health
DX: C15.9 Malignant neoplasm of esophagus, unspecified (principal); C78.7 Secondary malignant neoplasm of liver and intrahepatic bile duct; M25.511 Pain in right shoulder; M25.512 Pain in left shoulder; F17.210 Nicotine dependence, cigarettes, uncomplicated; Z79.899 Other long term (current) drug therapy; Z79.51 Long term (current) use of inhaled steroids; Z92.3 Personal history of irradiation; Z92.21 Personal history of antineoplastic chemotherapy; Z92.25 Personal history of immunosuppression therapy; Z80.7 Family history of other malignant neoplasms of lymphoid, hematopoietic and related tissues

== ENCOUNTER → 2021-09-24 | Outpatient (CLI) | payer OTHER ==
[~2021-09-24] MED LIST changes: -ALBU8.5H INH; -BACL1TAB8 PO; -COLA100C5 PO; -DOCU100C16 PO; -ELIQ5TAB PO; -FERR1TAB8 PO; -FERR325T19 PO; -LEVO1TAB40 PO; +LIDOCAINE 1% MDV 20ML VIAL As Ordered ONE; -MIRA1POW3 PO; -MIRA3350 PO; -MORP15TA2 PO; -MORP30TASA PO; -MSIR30TA PO; -ONDA4TAB6 PO; -PANT-23 PO; -PATIENT COMMENT; -SENN18TA PO; -SENN8.6T58 PO; -SUCR1ORA PO; -TORS20TA2 PO
[2021-09-24 11:40] VITALS: BP 112/71
== END ==
LOC: M IRPRO 08:55
PROVIDERS: ATTEND Internal Medicine Medical Oncology
DX: C15.9 Malignant neoplasm of esophagus, unspecified (principal)

== ENCOUNTER → 2021-09-26 | Outpatient (CLI) | payer OTHER ==
[~2021-09-26] MED LIST changes: -LIDOCAINE 1% MDV 20ML VIAL As Ordered ONE
== END ==
LOC: M ONCR 08:32
PROVIDERS: ATTEND General Practice
DX: C15.5 Malignant neoplasm of lower third of esophagus (principal); C78.7 Secondary malignant neoplasm of liver and intrahepatic bile duct; F17.210 Nicotine dependence, cigarettes, uncomplicated; Z79.899 Other long term (current) drug therapy; Z92.21 Personal history of antineoplastic chemotherapy; Z92.3 Personal history of irradiation; Z93.4 Other artificial openings of gastrointestinal tract status

== ENCOUNTER → 2021-10-10 | Outpatient (CLI) | payer OTHER ==
[~2021-10-10] VITALS: Ht 180.3 cm; Wt 62.2 kg
[~2021-10-10] MED LIST changes: +MORP15TA2 PO; +SUCR1ORA PO
[2021-10-10 10:01] VITALS: BP 115/75
== END ==
LOC: M PAL 09:48
PROVIDERS: ATTEND Nurse Practitioner Adult Health
DX: C15.9 Malignant neoplasm of esophagus, unspecified (principal); C78.7 Secondary malignant neoplasm of liver and intrahepatic bile duct; F17.210 Nicotine dependence, cigarettes, uncomplicated; M25.512 Pain in left shoulder; M25.511 Pain in right shoulder; R41.89 Other symptoms and signs involving cognitive functions and awareness; R53.83 Other fatigue; R06.02 Shortness of breath; R05.8 Other specified cough; Z80.7 Family history of other malignant neoplasms of lymphoid, hematopoietic and related tissues; Z92.3 Personal history of irradiation; Z79.891 Long term (current) use of opiate analgesic; Z79.51 Long term (current) use of inhaled steroids; Z79.899 Other long term (current) drug therapy

== ENCOUNTER 2021-10-13 14:24 | Inpatient (IN) | payer OTHER ==
[~2021-10-13] VITALS: Ht 170.2 cm; Wt 62.7 kg
[~2021-10-13 14:24] MED LIST changes: -SUCR1ORA PO
[2021-10-13 15:02] LABS: BASO % 0.1 % (0.0-1.0); EOS % 0.1 % (0.0-3.0); HEMATOCRIT 25.2 % (42.0-52.0); HEMOGLOBIN 8.2 g/dl (13.5-17.5); LYMPH # 0.4 10^3/uL (1.5-5.0); LYMPH % 1.3 % (24.0-44.0); MEAN CORPUSCULAR HEMOGLOBIN 28.8 pg (27.0-33.0); MEAN CORPUSCULAR HGB CONC 32.5 g/dl (32.0-36.5); MEAN CORPUSCULAR VOLUME 88.4 fl (80.0-96.0); MONO % 5.6 % (2.0-8.0); NEUTROPHILS % 91.8 % (36.0-66.0); PLATELET COUNT, AUTOMATED 356 10^3/uL (150-450); RED BLOOD COUNT 2.85 10^6/uL (4.30-6.10); WHITE BLOOD COUNT 29.4 10^3/uL (4.0-10.0)
[2021-10-13 15:36] LABS: MONO # 1.6 10^3/uL (0.0-0.8)
[2021-10-13 15:37] LABS: CK-MB VALUE MASS < 1.0 NG/ML (<3.6); CPK CREATINE PHOSPHOKINASE 27 U/L (39-308)
[2021-10-13 15:42] LABS: ALBUMIN 1.9 GM/DL (3.2-5.2); ALT/SGPT 50 U/L (12-78); BILIRUBIN,DIRECT 0.5 MG/DL (0.0-0.2); BILIRUBIN,TOTAL 0.7 MG/DL (0.2-1.0); BLOOD UREA NITROGEN 20 MG/DL (7-18); CALCIUM LEVEL 12.2 MG/DL (8.8-10.2); CARBON DIOXIDE LEVEL 33 MEQ/L (21-32); CHLORIDE LEVEL 97 MEQ/L (98-107); CREATININE FOR GFR 0.57 MG/DL (0.70-1.30); FREE T4 1.31 NG/DL (0.76-1.46); GLOMERULAR FILTRATION RATE > 60.0 (>49); GLUCOSE, FASTING 146 MG/DL (70-100); LIPASE 29 U/L (73-393); NT-PRO BNP 1255 PG/ML (<125); POTASSIUM SERUM 3.9 MEQ/L (3.5-5.1); SODIUM LEVEL 136 MEQ/L (136-145); THYROID STIMULATING HORMONE 0.933 uIU/ML (0.358-3.740); TOTAL PROTEIN 5.8 GM/DL (6.4-8.2)
[2021-10-13] MEDS ORDERED: ISOVUE-370 76% 100ML VIAL As Ordered ONE (16:08)
[2021-10-13 16:41] LABS: CK-MB VALUE MASS < 1.0 NG/ML (<3.6); CPK CREATINE PHOSPHOKINASE 18 U/L (39-308); MB/CK RELATIVE INDEX 5.56 (< OR =4)
[2021-10-13] MEDS ORDERED: HOME MED LIST COMPLETE! XX SCH (18:30)
[2021-10-13] MEDS ORDERED: ACETAMINOPHEN TAB 650MG DOSE (2X325MG) PO PRN (19:55)
[2021-10-13] MEDS ORDERED: ACETAMINOPH W/CODEINE #3 TAB UD PO PRN (20:05)
[2021-10-13] MEDS ORDERED: ALBUTEROL 90 MCG/ACT 8GM HFA INHALER INH PRN (20:05)
[2021-10-13] MEDS ORDERED: MORPHINE 30 MG TAB **MSIR PO PRN (20:05)
[2021-10-13] MEDS ORDERED: LR 1,000 ML IV SCH (20:15)
[2021-10-13 20:23] LABS: RSV AMPLIFICATION NEGATIVE (NEGATIVE)
[2021-10-13 20:49] LABS: FERRITIN 1725 NG/ML (26-388); IRON (FE) 25 UG/DL (65-175); PERCENT SATURATION 13.8 % (19.7-50.0); TOTAL IRON BINDING CAPACITY 181 UG/DL (250-450)
[2021-10-13] MEDS ORDERED: PANTOPRAZOLE 40MG TAB (PROTONIX) PO SCH (21:00)
[2021-10-13] MEDS ORDERED: ENOXAPARIN 60MG/0.6ML SYRINGE (J1650 PER 10MG) SC ONE (21:15)
[2021-10-13] MEDS: DOCUSATE SODIUM 100MG CAPSULE PO SCH (22:17)
[2021-10-13] MEDS: BACLOFEN 10 MG TAB PO SCH (22:18)
[2021-10-13] MEDS ORDERED: MORPHINE 4 MG/ML 1ML VIAL/SYRINGE IV PRN (23:05)
[2021-10-14 06:57] LABS: HEMATOCRIT 25.8 % (42.0-52.0); HEMOGLOBIN 8.2 g/dl (13.5-17.5); MEAN CORPUSCULAR HEMOGLOBIN 27.8 pg (27.0-33.0); MEAN CORPUSCULAR HGB CONC 31.8 g/dl (32.0-36.5); MEAN CORPUSCULAR VOLUME 87.5 fl (80.0-96.0); PLATELET COUNT, AUTOMATED 417 10^3/uL (150-450); RED BLOOD COUNT 2.95 10^6/uL (4.30-6.10)
[2021-10-14 07:00] LABS: WHITE BLOOD COUNT 32.5 10^3/uL (4.0-10.0)
[2021-10-14 07:38] LABS: ALT/SGPT 46 U/L (12-78); BILIRUBIN,TOTAL 0.7 MG/DL (0.2-1.0); BLOOD UREA NITROGEN 27 MG/DL (7-18); CALCIUM LEVEL 12.3 MG/DL (8.8-10.2); CARBON DIOXIDE LEVEL 38 MEQ/L (21-32); CHLORIDE LEVEL 96 MEQ/L (98-107); CREATININE FOR GFR 0.66 MG/DL (0.70-1.30); GLOMERULAR FILTRATION RATE > 60.0 (>49); GLUCOSE, FASTING 169 MG/DL (70-100); POTASSIUM SERUM 3.8 MEQ/L (3.5-5.1); SODIUM LEVEL 138 MEQ/L (136-145); TOTAL PROTEIN 5.6 GM/DL (6.4-8.2)
[2021-10-14] MEDS ORDERED: ZOLEDRONIC ACID 5 MG in IV 1 EA IV ONE (07:50)
[2021-10-14] MEDS: BACLOFEN 10 MG TAB PO SCH ×3 (09:00→20:38)
[2021-10-14] MEDS: DOCUSATE SODIUM 100MG CAPSULE PO SCH ×2 (09:00→20:37)
[2021-10-14] MEDS: KCL 20MEQ in NS 1000ML 1,000 ML IV SCH ×4 (09:03→17:18)
[2021-10-14] MEDS: PANTOPRAZOLE 40MG VIAL IV SCH ×2 (09:03→20:38)
[2021-10-14] MEDS: CALCITONIN SALMON (MIACALCIN) 400INTERNATIONAL UNITS/2ML INJ (J0630) SQ SCH ×2 (09:03→21:01)
[2021-10-14] MEDS ORDERED: ZOLEDRONIC ACID 4 MG OVER 15 MINUTES IV ONE ×2 (10:00)
[2021-10-14 10:16] LABS: VITAMIN B12 LEVEL 1286 PG/ML
[2021-10-14 13:18] VITALS: BP 124/72
[2021-10-14 14:00] VITALS: BP 119/70
[2021-10-14 20:00] VITALS: BP 118/72
[2021-10-14] MEDS: MORPHINE 2 MG/ML 1ML VIAL IV PRN (20:40)
[2021-10-14] MEDS ORDERED: GI COCKTAIL 50ML BTL(HYOSCYAMINE/MAALOX/LIDOCAINE VISCOUS)(1:3:1) PO ONE (21:00)
[2021-10-15] MEDS: ONDANSETRON 4MG ORAL DISINTEGRATING TAB PO PRN (00:37)
[2021-10-15 02:22] LABS: APPEARANCE, URINE MANUAL CLEAR (CLEAR); COLOR, URINE MANUAL YELLOW (YELLOW)
[2021-10-15 02:23] LABS: BILIRUBIN, URINE MANUAL NEGATIVE (NEGATIVE); BLOOD URINE MANUAL NEGATIVE (NEGATIVE); GLUCOSE, URINE (UA) MANUAL NEGATIVE (NEGATIVE); KETONE, URINE MANUAL NEGATIVE (NEGATIVE); LEUKOCYTE ESTERASE, URINE MAN NEGATIVE (NEGATIVE); NITRITE, URINE MANUAL NEGATIVE (NEGATIVE); PROTEIN, URINE MANUAL NEGATIVE (NEGATIVE); SPECIFIC GRAVITY,URINE MANUAL 1.015 (1.002-1.035); UROBILINOGEN, URINE MANUAL NORMAL (NORMAL)
[2021-10-15] MEDS: MORPHINE 2 MG/ML 1ML VIAL IV PRN ×3 (05:55→22:15)
[2021-10-15 06:00] VITALS: BP 116/72
[2021-10-15 06:21] LABS: HEMATOCRIT 24.3 % (42.0-52.0); HEMOGLOBIN 7.6 g/dl (13.5-17.5); MEAN CORPUSCULAR HEMOGLOBIN 28.8 pg (27.0-33.0); MEAN CORPUSCULAR HGB CONC 31.3 g/dl (32.0-36.5); PLATELET COUNT, AUTOMATED 384 10^3/uL (150-450); RED BLOOD COUNT 2.64 10^6/uL (4.30-6.10); WHITE BLOOD COUNT 29.9 10^3/uL (4.0-10.0)
[2021-10-15 07:04] LABS: ALT/SGPT 45 U/L (12-78); BILIRUBIN,DIRECT 0.4 MG/DL (0.0-0.2); BILIRUBIN,TOTAL 0.6 MG/DL (0.2-1.0); BLOOD UREA NITROGEN 31 MG/DL (7-18); CALCIUM LEVEL 11.5 MG/DL (8.8-10.2); CARBON DIOXIDE LEVEL 28 MEQ/L (21-32); CHLORIDE LEVEL 107 MEQ/L (98-107); CREATININE FOR GFR 0.76 MG/DL (0.70-1.30); GLOMERULAR FILTRATION RATE > 60.0 (>49); GLUCOSE, FASTING 136 MG/DL (70-100); PHOSPHORUS LEVEL 2.4 MG/DL (2.5-4.9); SODIUM LEVEL 140 MEQ/L (136-145); TOTAL PROTEIN 5.8 GM/DL (6.4-8.2)
[2021-10-15] MEDS ORDERED: ENOXAPARIN 40MG/0.4ML SYRINGE (J1650 PER 10MG) SC SCH (09:00)
[2021-10-15 09:32] LABS: INR 1.23; PROTHROMBIN TIME 15.9 SECONDS (12.7-14.5)
[2021-10-15] MEDS: PANTOPRAZOLE 40MG VIAL IV SCH ×2 (09:32→20:23)
[2021-10-15] MEDS: LevoFLOXacin 750 MG TABLET PO SCH (09:32)
[2021-10-15] MEDS: BACLOFEN 10 MG TAB PO SCH ×3 (09:32→20:22)
[2021-10-15] MEDS: DOCUSATE SODIUM 100MG CAPSULE PO SCH ×2 (09:32→20:22)
[2021-10-15] MEDS: APIXABAN 5 MG TAB (ELIQUIS) PO SCH ×2 (09:32→20:22)
[2021-10-15 09:33] LABS: PARTIAL THROMBOPLASTIN TIME 31.1 SECONDS (25.9-37.0)
[2021-10-15 14:00] VITALS: BP 97/53
[2021-10-15] MEDS: ANALGESIC BALM CRM 3OZ TOP SCH ×2 (16:00→18:25)
[2021-10-15 16:42] VITALS: BP 105/62
[2021-10-15] MEDS ORDERED: PILL CUTTER 1 EACH XX PRN (18:00)
[2021-10-15] MEDS: MIRALAX *UNIT DOSE* 17GM PACKET PO SCH (18:25)
[2021-10-15 20:00] VITALS: BP 100/62
[2021-10-15] MEDS ORDERED: IRON SUCROSE 200 MG in NS 100 ML IV ONE (20:00)
[2021-10-15] MEDS: FERROUS SULFATE 325MG TAB PO SCH (20:22)
[2021-10-15] MEDS: SENNA 8.6 MG TAB (SENOKOT) PO SCH (20:23)
[2021-10-15] MEDS: MORPHINE 30 MG TAB **MSIR PO PRN (20:23)
[2021-10-15 21:38] VITALS: BP 101/62
[2021-10-15] MEDS ORDERED: MAALOX 30 ML SUSP *UDC PO PRN (21:45)
[2021-10-15] MEDS ORDERED: SUCR1ORA PO (21:49)
[2021-10-16] VITALS (11 sets, daily range): BP systolic 97–152; BP diastolic 63–89
[2021-10-16] MEDS: ASPERCREME TOP PRN ×2 (00:24→20:31)
[2021-10-16] MEDS: MORPHINE 30 MG TAB **MSIR PO PRN ×5 (00:29→22:38)
[2021-10-16] MEDS: MORPHINE 2 MG/ML 1ML VIAL IV PRN ×2 (02:51→09:43)
[2021-10-16] MEDS: LevoFLOXacin 750 MG TABLET PO SCH (05:52)
[2021-10-16 06:16] LABS: HEMATOCRIT 22.6 % (42.0-52.0); HEMOGLOBIN 7.2 g/dl (13.5-17.5); MEAN CORPUSCULAR HEMOGLOBIN 28.9 pg (27.0-33.0); MEAN CORPUSCULAR HGB CONC 31.9 g/dl (32.0-36.5); MEAN CORPUSCULAR VOLUME 90.8 fl (80.0-96.0); PLATELET COUNT, AUTOMATED 418 10^3/uL (150-450); RED BLOOD COUNT 2.49 10^6/uL (4.30-6.10)
[2021-10-16 06:48] LABS: ALBUMIN 1.9 GM/DL (3.2-5.2); ALT/SGPT 51 U/L (12-78); BILIRUBIN,TOTAL 0.6 MG/DL (0.2-1.0); BLOOD UREA NITROGEN 27 MG/DL (7-18); CALCIUM LEVEL 10.5 MG/DL (8.8-10.2); CARBON DIOXIDE LEVEL 27 MEQ/L (21-32); CHLORIDE LEVEL 104 MEQ/L (98-107); CREATININE FOR GFR 0.65 MG/DL (0.70-1.30); GLOMERULAR FILTRATION RATE > 60.0 (>49); GLUCOSE, FASTING 131 MG/DL (70-100); POTASSIUM SERUM 4.1 MEQ/L (3.5-5.1); SODIUM LEVEL 139 MEQ/L (136-145); TOTAL PROTEIN 5.3 GM/DL (6.4-8.2)
[2021-10-16] MEDS: MIRALAX *UNIT DOSE* 17GM PACKET PO SCH (09:00)
[2021-10-16] MEDS: DOCUSATE SODIUM 100MG CAPSULE PO SCH ×2 (09:43→20:26)
[2021-10-16] MEDS: APIXABAN 5 MG TAB (ELIQUIS) PO SCH ×2 (09:43→20:26)
[2021-10-16] MEDS: BACLOFEN 10 MG TAB PO SCH ×3 (09:43→20:26)
[2021-10-16] MEDS: FERROUS SULFATE 325MG TAB PO SCH ×2 (09:44→20:26)
[2021-10-16] MEDS: PANTOPRAZOLE 40MG VIAL IV SCH ×2 (09:50→20:26)
[2021-10-16] MEDS ORDERED: LACTULOSE 20 GM/30 ML SYRUP UD PO ONE (14:15)
[2021-10-16] MEDS: MORPHINE 30 MG SA TAB PO SCH ×2 (14:56→20:26)
[2021-10-16] MEDS: SENNA 8.6 MG TAB (SENOKOT) PO SCH (20:26)
[2021-10-16] MEDS: ONDANSETRON 4MG ORAL DISINTEGRATING TAB PO PRN (21:10)
[2021-10-16] MEDS ORDERED: GI COCKTAIL 50ML BTL(HYOSCYAMINE/MAALOX/LIDOCAINE VISCOUS)(1:3:1) PO ONE (22:30)
[2021-10-17] MEDS: LevoFLOXacin 750 MG TABLET PO SCH (05:57)
[2021-10-17] MEDS: MORPHINE 30 MG TAB **MSIR PO PRN ×2 (05:58→11:24)
[2021-10-17 06:00] VITALS: BP 113/78
[2021-10-17] MEDS: ASPERCREME TOP PRN (06:07)
[2021-10-17 06:35] LABS: HEMATOCRIT 30.8 % (42.0-52.0); MEAN CORPUSCULAR HEMOGLOBIN 29.4 pg (27.0-33.0); MEAN CORPUSCULAR HGB CONC 32.8 g/dl (32.0-36.5); MEAN CORPUSCULAR VOLUME 89.5 fl (80.0-96.0); PLATELET COUNT, AUTOMATED 375 10^3/uL (150-450); RED BLOOD COUNT 3.44 10^6/uL (4.30-6.10)
[2021-10-17 06:39] LABS: HEMOGLOBIN 10.1 g/dl (13.5-17.5); WHITE BLOOD COUNT 36.1 10^3/uL (4.0-10.0)
[2021-10-17 07:31] LABS: ALT/SGPT 49 U/L (12-78); BILIRUBIN,TOTAL 0.9 MG/DL (0.2-1.0); BLOOD UREA NITROGEN 22 MG/DL (7-18); CARBON DIOXIDE LEVEL 28 MEQ/L (21-32); CHLORIDE LEVEL 103 MEQ/L (98-107); CREATININE FOR GFR 0.62 MG/DL (0.70-1.30); GLOMERULAR FILTRATION RATE > 60.0 (>49); GLUCOSE, FASTING 104 MG/DL (70-100); POTASSIUM SERUM 4.2 MEQ/L (3.5-5.1); SODIUM LEVEL 137 MEQ/L (136-145); TOTAL PROTEIN 5.6 GM/DL (6.4-8.2)
[2021-10-17] MEDS ORDERED: MIRA1POW3 PO (07:49)
[2021-10-17] MEDS ORDERED: COLA100C5 PO (07:49)
[2021-10-17] MEDS ORDERED: LEVO1TAB40 PO (07:49)
[2021-10-17] MEDS ORDERED: SENN18TA PO (07:49)
[2021-10-17] MEDS ORDERED: ONDA4TAB6 PO (07:49)
[2021-10-17] MEDS ORDERED: MORP30TASA PO (07:49)
[2021-10-17] MEDS ORDERED: ELIQ5TAB PO (07:49)
[2021-10-17] MEDS ORDERED: FERR1TAB8 PO (07:49)
[2021-10-17] MEDS: MIRALAX *UNIT DOSE* 17GM PACKET PO SCH (09:00)
[2021-10-17] MEDS: PANTOPRAZOLE 40MG VIAL IV SCH (09:03)
[2021-10-17] MEDS: DOCUSATE SODIUM 100MG CAPSULE PO SCH (09:03)
[2021-10-17] MEDS: APIXABAN 5 MG TAB (ELIQUIS) PO SCH (09:04)
[2021-10-17] MEDS: FERROUS SULFATE 325MG TAB PO SCH (09:04)
[2021-10-17] MEDS: BACLOFEN 10 MG TAB PO SCH (09:04)
[2021-10-17] MEDS: MORPHINE 30 MG SA TAB PO SCH (09:04)
[2021-10-17 11:53] LABS: FOLATE 16.4 NG/ML
[2021-10-18] MEDS ORDERED: TORS20TA2 PO (15:22)
== END 2021-10-17 11:29 | disposition home or self-care (01) | DRG 663 ==
LOC: M ED 14:24 → EDBD 14:24 → M ED INP 19:55 → ENRESERV 10-14 12:18 → M MSPAV 10-14 13:20
PROVIDERS: ADMIT Family Medicine; ATTEND Internal Medicine
PROC: B246ZZZ Ultrasonography of Right and Left Heart (ICD-10-PCS; principal; 2021-10-14)
PROC: 30233N1 Transfusion of Nonautologous Red Blood Cells into Peripheral Vein, Percutaneous Approach (ICD-10-PCS; 2021-10-14)
DX: D50.9 Iron deficiency anemia, unspecified (principal); J90 Pleural effusion, not elsewhere classified; C78.7 Secondary malignant neoplasm of liver and intrahepatic bile duct; C78.00 Secondary malignant neoplasm of unspecified lung; E83.52 Hypercalcemia; C15.9 Malignant neoplasm of esophagus, unspecified; Z92.3 Personal history of irradiation; Z92.21 Personal history of antineoplastic chemotherapy; F17.200 Nicotine dependence, unspecified, uncomplicated; D72.829 Elevated white blood cell count, unspecified; I48.91 Unspecified atrial fibrillation; Z79.899 Other long term (current) drug therapy; Z20.822 Contact with and (suspected) exposure to COVID-19; Z66 Do not resuscitate

== ENCOUNTER → 2021-10-18 | Outpatient (CLI) | payer OTHER ==
[~2021-10-18] MED LIST changes: +ALBU8.5H INH; +BACL1TAB8 PO; +COLA100C5 PO; +DOCU100C16 PO; +ELIQ5TAB PO; +FERR1TAB8 PO; +FERR325T19 PO; +LEVO1TAB40 PO; +MIRA1POW3 PO; +MIRA3350 PO; +MORP30TASA PO; +MSIR30TA PO; +ONDA4TAB6 PO; +PANT-23 PO; +PATIENT COMMENT; +SENN18TA PO; +SENN8.6T58 PO; +SUCR1ORA PO; +TORS20TA2 PO
== END ==
LOC: M ONCR 14:14
PROVIDERS: ATTEND General Practice
DX: C15.5 Malignant neoplasm of lower third of esophagus (principal); C78.7 Secondary malignant neoplasm of liver and intrahepatic bile duct; R60.9 Edema, unspecified; R64 Cachexia; R68.81 Early satiety; F17.210 Nicotine dependence, cigarettes, uncomplicated; Z79.01 Long term (current) use of anticoagulants; Z79.51 Long term (current) use of inhaled steroids; Z79.52 Long term (current) use of systemic steroids; Z79.891 Long term (current) use of opiate analgesic; Z79.899 Other long term (current) drug therapy; Z86.59 Personal history of other mental and behavioral disorders; Z92.21 Personal history of antineoplastic chemotherapy; Z92.3 Personal history of irradiation; Z93.4 Other artificial openings of gastrointestinal tract status; Z95.828 Presence of other vascular implants and grafts

== ENCOUNTER 2021-10-21 21:24 | Inpatient (IN) | payer OTHER ==
[~2021-10-21] VITALS: Ht 170.2 cm; Wt 67.2 kg
[~2021-10-21 21:24] MED LIST changes: -ALBU8.5H INH; -BACL1TAB8 PO; -DOCU100C16 PO; -FERR325T19 PO; -MIRA3350 PO; -MSIR30TA PO; -PANT-23 PO; -PATIENT COMMENT; -SENN8.6T58 PO
[2021-10-21] MEDS ORDERED: NS 500 ML IV ONE (22:30)
[2021-10-21] MEDS ORDERED: MORPHINE 4 MG/ML 1ML VIAL/SYRINGE IV ONE (22:30)
[2021-10-21] MEDS ORDERED: ONDANSETRON 4MG 2ML VIAL IV ONE (22:30)
[2021-10-21 22:53] LABS: BASO # 0.1 10^3/uL (0.0-0.2); BASO % 0.2 % (0.0-1.0); LYMPH # 0.8 10^3/uL (1.5-5.0); LYMPH % 1.8 % (24.0-44.0); MEAN CORPUSCULAR HEMOGLOBIN 29.1 pg (27.0-33.0); MEAN CORPUSCULAR HGB CONC 32.4 g/dl (32.0-36.5); MEAN CORPUSCULAR VOLUME 89.9 fl (80.0-96.0); MONO % 4.5 % (2.0-8.0); NEUTROPHILS # 41.1 10^3/uL (1.5-8.5); NEUTROPHILS % 89.2 % (36.0-66.0); PLATELET COUNT, AUTOMATED 339 10^3/uL (150-450); RED BLOOD COUNT 1.89 10^6/uL (4.30-6.10)
[2021-10-21 22:55] LABS: HEMOGLOBIN 5.5 g/dl (13.5-17.5); MONO # 2.1 10^3/uL (0.0-0.8); WHITE BLOOD COUNT 46.1 10^3/uL (4.0-10.0)
[2021-10-21] MEDS ORDERED: fentaNYL 100 MCG/2 ML INJECTION IV ONE (22:55)
[2021-10-21 23:03] LABS: INR 2.73; PROTHROMBIN TIME 29.3 SECONDS (12.7-14.5)
[2021-10-21 23:04] LABS: PARTIAL THROMBOPLASTIN TIME 55.2 SECONDS (25.9-37.0)
[2021-10-21 23:25] LABS: ALBUMIN 1.8 GM/DL (3.2-5.2); ALT/SGPT 115 U/L (12-78); BILIRUBIN,TOTAL 0.6 MG/DL (0.2-1.0); BLOOD UREA NITROGEN 67 MG/DL (7-18); CALCIUM LEVEL 9.2 MG/DL (8.8-10.2); CARBON DIOXIDE LEVEL 23 MEQ/L (21-32); CHLORIDE LEVEL 96 MEQ/L (98-107); CREATININE FOR GFR 0.92 MG/DL (0.70-1.30); GLOMERULAR FILTRATION RATE > 60.0 (>49); GLUCOSE, FASTING 228 MG/DL (70-100); POTASSIUM SERUM 4.5 MEQ/L (3.5-5.1); SODIUM LEVEL 130 MEQ/L (136-145); TOTAL PROTEIN 4.8 GM/DL (6.4-8.2)
[2021-10-21 23:33] LABS: VENOUS BASE EXCESS 0.4 (-2.0-2.0); VENOUS HCO3 24.7 MEQ/L (23.0-27.0); VENOUS O2 SATURATION 97.9 % (60.0-80.0); VENOUS PARTIAL PRESSURE CO2 37.4 mmHg (38.0-50.0); VENOUS PARTIAL PRESSURE O2 104.3 mmHg (30.0-50.0); VENOUS PH 7.437 UNITS (7.330-7.430); VENOUS STANDARD HCO3 24.9 MEQ/L; VENOUS TOTAL CO2 25.8 MEQ/L (24.0-28.0)
[2021-10-21] MEDS ORDERED: ALBU8.5H INH (23:58)
[2021-10-21] MEDS ORDERED: PATIENT COMMENT (23:58)
[2021-10-21] MEDS ORDERED: ACET300T48 PO (23:58)
[2021-10-22] VITALS (40 sets, daily range): BP systolic 67–111; BP diastolic 37–72
[2021-10-22] MEDS ORDERED: ELIQ5TAB PO (00:04)
[2021-10-22] MEDS ORDERED: DOCU100C16 PO (00:04)
[2021-10-22] MEDS ORDERED: DEXA2TA PO (00:04)
[2021-10-22] MEDS ORDERED: BACL1TAB8 PO (00:04)
[2021-10-22] MEDS ORDERED: FERR325T19 PO (00:04)
[2021-10-22] MEDS ORDERED: LEVO1TAB40 PO (00:04)
[2021-10-22] MEDS ORDERED: MORP15TA2 PO (00:14)
[2021-10-22] MEDS ORDERED: PANT-23 PO (00:14)
[2021-10-22] MEDS ORDERED: SUCR1ORA2 PEG (00:14)
[2021-10-22] MEDS ORDERED: SENN8.6T58 PO (00:14)
[2021-10-22] MEDS ORDERED: MIRA3350 PO (00:14)
[2021-10-22] MEDS ORDERED: TORS20TA2 PO (00:14)
[2021-10-22] MEDS ORDERED: ONDA4TAB6 PO (00:14)
[2021-10-22] MEDS ORDERED: MSIR30TA PO (00:14)
[2021-10-22] MEDS ORDERED: HOME MED LIST COMPLETE! XX SCH (00:15)
[2021-10-22] MEDS ORDERED: NS 1,880 ML in IV 1 EA IV ONE (00:25)
[2021-10-22 00:49] LABS: RSV AMPLIFICATION NEGATIVE (NEGATIVE)
[2021-10-22] MEDS ORDERED: NOREPINEPHRINE/DEXTROSE 8 MG in IV 1 EA IV SCH ×2 (02:45→03:00)
[2021-10-22] MEDS ORDERED: DEXTROSE 50% 50 ML SYRINGE IV PRN (03:45)
[2021-10-22] MEDS ORDERED: LR 1,000 ML IV SCH (03:45)
[2021-10-22] MEDS ORDERED: ALBUTEROL 90 MCG/ACT 8GM HFA INHALER INH PRN (03:45)
[2021-10-22] MEDS ORDERED: MORPHINE 30 MG TAB **MSIR PO PRN (03:45)
[2021-10-22] MEDS ORDERED: GLUCAGON INJ 1MG VIAL SC PRN (03:45)
[2021-10-22] MEDS ORDERED: GLUCOSE 4GM CHEW TABLET PO PRN (03:45)
[2021-10-22] MEDS ORDERED: ACETAMINOPH W/CODEINE #3 TAB UD PO PRN (03:45)
[2021-10-22] MEDS ORDERED: ONDANSETRON 4MG 2ML VIAL IV PRN ×2 (03:45→14:15)
[2021-10-22] MEDS ORDERED: MIRALAX *UNIT DOSE* 17GM PACKET PO PRN (03:45)
[2021-10-22 04:29] LABS: AMORPHOUS SEDIMENT, URINE SMALL AMOUNT (NEGATIVE); BACTERIA, URINE NONE SEEN; HYALINE CAST, URINE NONE SEEN /lpf (0-1); RBC, URINE 0-1 /hpf (0-3)
[2021-10-22 04:30] LABS: SQUAMOUS EPITHELIAL CELL URINE NONE SEEN /hpf (SMALL AMT)
[2021-10-22] MEDS ORDERED: VANCOMYCIN HCL 750 MG, VIAL MATE ADAPTER 1 EACH in D5W 250 ML IV ONE (05:00)
[2021-10-22 05:43] LABS: BASO # 0.1 10^3/uL (0.0-0.2); BASO % 0.3 % (0.0-1.0); LYMPH # 0.9 10^3/uL (1.5-5.0); LYMPH % 1.7 % (24.0-44.0); MEAN CORPUSCULAR HEMOGLOBIN 29.2 pg (27.0-33.0); MEAN CORPUSCULAR HGB CONC 32.5 g/dl (32.0-36.5); MEAN CORPUSCULAR VOLUME 89.9 fl (80.0-96.0); MONO % 4.6 % (2.0-8.0); NEUTROPHILS # 44.9 10^3/uL (1.5-8.5); NEUTROPHILS % 89.3 % (36.0-66.0); PLATELET COUNT, AUTOMATED 339 10^3/uL (150-450); RED BLOOD COUNT 2.67 10^6/uL (4.30-6.10)
[2021-10-22 05:45] LABS: HEMOGLOBIN 7.8 g/dl (13.5-17.5); MONO # 2.3 10^3/uL (0.0-0.8); WHITE BLOOD COUNT 50.2 10^3/uL (4.0-10.0)
[2021-10-22] MEDS ORDERED: VANCOMYCIN HCL 500 MG in D5W MINI-BAG PLUS 100 ML IV ONE (06:00)
[2021-10-22 07:59] LABS: ALBUMIN 1.6 GM/DL (3.2-5.2); ALT/SGPT 141 U/L (12-78); BILIRUBIN,TOTAL 1.2 MG/DL (0.2-1.0); BLOOD UREA NITROGEN 59 MG/DL (7-18); CALCIUM LEVEL 8.2 MG/DL (8.8-10.2); CARBON DIOXIDE LEVEL 26 MEQ/L (21-32); CHLORIDE LEVEL 99 MEQ/L (98-107); CREATININE FOR GFR 0.76 MG/DL (0.70-1.30); GLOMERULAR FILTRATION RATE > 60.0 (>49); GLUCOSE, FASTING 269 MG/DL (70-100); POTASSIUM SERUM 3.9 MEQ/L (3.5-5.1); SODIUM LEVEL 131 MEQ/L (136-145); TOTAL PROTEIN 4.8 GM/DL (6.4-8.2)
[2021-10-22] MEDS ORDERED: PIPERACILLIN/TAZOBACTAM SOD 3.375 GM in D5W MINI-BAG PLUS 50 ML IV SCH (08:00)
[2021-10-22] MEDS ORDERED: METOPROLOL TART 25 MG TABLET PO SCH (09:00)
[2021-10-22] MEDS: BACLOFEN 10 MG TAB PO SCH ×2 (09:00→09:02)
[2021-10-22] MEDS ORDERED: APIXABAN 5 MG TAB (ELIQUIS) PO SCH (09:00)
[2021-10-22] MEDS: DOCUSATE SODIUM 100MG CAPSULE PO SCH ×2 (09:00→09:02)
[2021-10-22] MEDS: FERROUS SULFATE 325MG TAB PO SCH ×2 (09:00→09:01)
[2021-10-22] MEDS ORDERED: MORPHINE 30 MG SA TAB PO SCH (09:00)
[2021-10-22] MEDS: SUCRALFATE SUSP 1GM/10ML UD PEG SCH ×3 (09:00→12:23)
[2021-10-22] MEDS: PANTOPRAZOLE 40MG VIAL IV SCH ×2 (09:02→09:03)
[2021-10-22] MEDS ORDERED: DIGOXIN INJ 0.5 MG/2 ML AMP (J1160) IV ONE (11:00)
[2021-10-22] MEDS ORDERED: ISOVUE-370 76% 100ML VIAL As Ordered ONE (11:52)
[2021-10-22] MEDS ORDERED: VANCOMYCIN HCL 1,000 MG, VIAL MATE ADAPTER 1 EACH in NS 250 ML IV SCH (12:00)
[2021-10-22] MEDS ORDERED: MORPHINE 2 MG/ML 1ML VIAL As Ordered ONE (12:34)
[2021-10-22 12:52] LABS: HEMATOCRIT 19.6 % (42.0-52.0); HEMOGLOBIN 6.7 g/dl (13.5-17.5)
[2021-10-22] MEDS ORDERED: MORPHINE 2 MG/ML 1ML VIAL IV ONE (13:00)
[2021-10-22 13:56] LABS: MB/CK RELATIVE INDEX 6.45 (< OR =4)
[2021-10-22] MEDS ORDERED: HEPARIN SOD (PORCINE) 5000UNITS/ML 1ML VIAL/SYRINGE SQ SCH (14:00)
[2021-10-22 14:07] LABS: INR 2.02; PROTHROMBIN TIME 23.3 SECONDS (12.7-14.5)
[2021-10-22] MEDS ORDERED: LORazepam 1 MG TAB PO PRN (14:15)
[2021-10-22] MEDS ORDERED: SCOPOLAMINE 1MG TRANSDERMAL PATCH TOP PRN (14:15)
[2021-10-22] MEDS ORDERED: MORPHINE SULF IN 0.9% NACL 100 MG in IV 1 EA IV SCH ×2 (14:15)
[2021-10-22] MEDS ORDERED: MORPHINE 10MG/0.5ML ORAL CONCENTRATE SOLUTION U/D SL PRN (14:15)
[2021-10-22] MEDS ORDERED: ONDANSETRON 4MG ORAL DISINTEGRATING TAB PO PRN (14:15)
[2021-10-22] MEDS ORDERED: ACETAMINOPHEN TAB 650MG DOSE (2X325MG) PO PRN (14:15)
[2021-10-22] MEDS ORDERED: ACETAMINOPHEN 650 MG SUPP PR PRN (14:15)
[2021-10-22] MEDS ORDERED: LORazepam 2 MG/ML VIAL IV PRN (14:15)
[2021-10-22] MEDS ORDERED: BISACODYL 10 MG SUPP PR PRN (14:15)
[2021-10-22] MEDS ORDERED: HYOSCYAMINE SULFATE 0.125 MG SUBL TABLET PO PRN (14:15)
[2021-10-22] MEDS ORDERED: FLEET ENEMA PR PRN (14:15)
[2021-10-22] MEDS ORDERED: MORPHINE 2 MG/ML 1ML VIAL IV PRN (14:15)
[2021-10-22 14:27] LABS: MEAN CORPUSCULAR HEMOGLOBIN 30.4 pg (27.0-33.0); MEAN CORPUSCULAR VOLUME 89.3 fl (80.0-96.0); PLATELET COUNT, AUTOMATED 314 10^3/uL (150-450); RED BLOOD COUNT 2.24 10^6/uL (4.30-6.10)
[2021-10-22 14:42] LABS: ANISOCYTOSIS 1+; LYMPHOCYTES 2 % (16-44); MONOCYTES 7 % (0-5); NEUTROPHILS 91 % (28-66); PLATELET ESTIMATE NORMAL (NORMAL)
[2021-10-22] MEDS ORDERED: HYDROMORPHONE HCL 0.5 MG/ 0.5 ML SYRINGE (J1170 PER 1) IV ONE ×3 (15:00→16:30)
[2021-10-22] MEDS ORDERED: HYDROMORPHONE HCL 0.5 MG/ 0.5 ML SYRINGE (J1170 PER 1) IV PRN (16:35)
[2021-10-22] MEDS ORDERED: LORazepam 2 MG/ML VIAL IV ONE (16:40)
[2021-10-22] MEDS ORDERED: SENNA 8.6 MG TAB (SENOKOT) PO SCH (21:00)
[2021-10-22] MEDS: HYDROMORPHONE HCL 0.5 MG/ 0.5 ML SYRINGE (J1170 PER 1) IV PRN (21:24)
[2021-10-22] MEDS: LORazepam 2 MG/ML VIAL IV PRN (22:11)
[2021-10-23] MEDS: HYDROMORPHONE HCL 0.5 MG/ 0.5 ML SYRINGE (J1170 PER 1) IV PRN ×8 (00:54→22:41)
[2021-10-23] MEDS: LORazepam 2 MG/ML VIAL IV PRN ×4 (05:10→14:43)
[2021-10-23] MEDS ORDERED: LORazepam 2 MG/ML VIAL As Ordered ONE ×3 (08:18→14:37)
[2021-10-23] MEDS: ATROPINE SULFATE 1% OP SOLN 2 ML BTL SL PRN (15:54)
[2021-10-24] MEDS: LORazepam 2 MG/ML VIAL IV PRN ×2 (00:30→11:03)
[2021-10-24] MEDS: HYDROMORPHONE HCL 0.5 MG/ 0.5 ML SYRINGE (J1170 PER 1) IV PRN ×2 (10:49→10:55)
[2021-10-24] MEDS ORDERED: POLYVINYL ALCOHOL OPHTH SOLN 15 ML(LIQUITEARS) OU PRN (10:55)
[2021-10-24] MEDS ORDERED: LORazepam 2 MG/ML VIAL As Ordered ONE (11:00)
[2021-10-24] MEDS ORDERED: HYDROMORPHONE HCL 0.5 MG/ 0.5 ML SYRINGE (J1170 PER 1) IV ONE (11:00)
[2021-10-24] MEDS ORDERED: SODIUM CHLORIDE 0.9% INJ 10 ML SYR IV PRN (11:30)
[2021-10-24] MEDS: MORPHINE SULF IN 0.9% NACL 100 MG in IV 1 EA IV SCH ×4 (13:04→20:14)
[2021-10-24] MEDS: LORazepam 1 MG TAB PO PRN ×3 (18:55→21:00)
[2021-10-24] MEDS: ATROPINE SULFATE 1% OP SOLN 2 ML BTL SL PRN (20:00)
[2021-10-25] MEDS: MORPHINE SULF IN 0.9% NACL 100 MG in IV 1 EA IV SCH ×4 (06:09→15:09)
[2021-10-25] MEDS: ATROPINE SULFATE 1% OP SOLN 2 ML BTL SL PRN (06:19)
[2021-10-25] MEDS: LORazepam 1 MG TAB PO PRN ×2 (13:58→18:15)
[2021-10-25] MEDS: SODIUM CHLORIDE 0.9% INJ 10 ML SYR IV SCH ×2 (14:00→18:15)
== END 2021-10-25 22:10 | disposition expired | DRG 720 ==
LOC: EDBD 21:24 → M ED 21:24 → M ED INP 10-22 03:16 → M ICU 10-22 04:38 → M MS5PR 10-24 14:32
PROVIDERS: ADMIT Family Medicine; ATTEND General Practice
PROC: 30233N1 Transfusion of Nonautologous Red Blood Cells into Peripheral Vein, Percutaneous Approach (ICD-10-PCS; principal; 2021-10-22)
DX: A41.9 Sepsis, unspecified organism (principal); J96.01 Acute respiratory failure with hypoxia; K72.00 Acute and subacute hepatic failure without coma; R65.21 Severe sepsis with septic shock; C78.00 Secondary malignant neoplasm of unspecified lung; C78.7 Secondary malignant neoplasm of liver and intrahepatic bile duct; E83.52 Hypercalcemia; E87.2 Acidosis; C15.9 Malignant neoplasm of esophagus, unspecified; I95.9 Hypotension, unspecified; I48.20 Chronic atrial fibrillation, unspecified; E87.1 Hypo-osmolality and hyponatremia; Z66 Do not resuscitate; Z92.3 Personal history of irradiation; Z92.21 Personal history of antineoplastic chemotherapy; D50.9 Iron deficiency anemia, unspecified; D72.829 Elevated white blood cell count, unspecified; F17.210 Nicotine dependence, cigarettes, uncomplicated; R74.01 Elevation of levels of liver transaminase levels; D63.8 Anemia in other chronic diseases classified elsewhere; Z79.01 Long term (current) use of anticoagulants; Z79.891 Long term (current) use of opiate analgesic; Z79.899 Other long term (current) drug therapy; M54.9 Dorsalgia, unspecified; J98.11 Atelectasis